=== PATIENT | female | born 1975 | race Caucasian/White ===

== ENCOUNTER 2020-05-25 00:30 | Emergency (ER) | payer OTHER, SELFPAY ==
--- NOTE | ~2020-05-25 | XR_ITS ---
XR chest 2V DATE: 05/25/2020 01:11 INDICATION: Shortness of breath, palpitations TECHNIQUE: PA and lateral views COMPARISON: 08/15/2007 AP chest FINDINGS: Normal heart size. No hilar or mediastinal enlargement. No pulmonary infiltrate or consolid ation, pleural effusion or pulmonary vascular congestion or pneumothorax. Surgical clips, right upper quadrant, consistent with cholecystectomy. IMPRESSION: No active cardiopulmonary disease Reviewed, dictated and finalized at location A.
[2020-05-25 00:33] VITALS: BP 171/101; PULSE 88; RESP 18; TEMP 36.8; O2SAT 100
--- NOTE | 2020-05-25 00:58 | ECG_ITS ---
Measurements Intervals [place] Rate: 84 P: 38 MO: 157 QRS: 21 QRSD: 97 T: 11 QT: 388 QTc: 461 Interpretive Statements SINUS RHYTHM LOW QRS VOLTAGE IN PRECORDIAL LEADS BORDERLINE T WAVE ABNORMALITY- INFERIOR LEADS BASELINE ARTIFACT- I, II, III, AVR, AVL, AVF BORDERLINE ECG Electronically Signed On 05-25-2020 7:03:09 CDT by Nain Fried D.O.
--- NOTE | 2020-05-25 01:10 | ED.GENADULT ---
HPI - General Adult General Chief complaint: Shortness of Breath/Dyspnea Stated complaint: Shortness of breath Time Seen by Provider: 05/25/20 00:40 History of Present Illness HPI narrative: Patient is a 44-year-old female who presents ER with feelings of weakness and like her heart was not beating right earlier in the evening. Patient diagnosed with diverticulitis about a week ago. Has been taking the antibiotics. Reports she thought she was feeling better earlier today but when she laid down to go to sleep she felt chilled and like her heart was not beating properly. Somewhat short of breath but no runny nose/sore throat/cough. No loss of taste or smell. No history of anxiety. Still has left lower quadrant abdominal pain. Related Data Allergies Allergy/AdvReac Type Severity Reaction Status Date / Time No Known Allergies Allergy Unverified 05/16/20 11:10 Review of Systems Review of Systems: All systems reviewed & are unremarkable except as noted in HPI and below Constitutional: Constitutional: Denies chills, Reports fatigue and Denies fever(s) ENT: Denies nasal congestion and Denies sore throat Respiratory: Respiratory: Denies cough, Reports dyspnea and Denies wheezing Gastrointestinal: Gastrointestinal: Reports abdominal pain, Denies nausea and Denies vomiting Genitourinary: Genitourinary: Denies nocturia and Denies dysuria PMFSH Past Medical History Medical History (Updated 05/25/20 @ 01:39 by Augustine Can MD) Diverticulitis DVT (deep venous thrombosis) Surgical History Surgical History (Updated 05/25/20 @ 01:39 by Augustine Can MD) H/O section History of cholecystectomy Family History Family History (Updated 03/12/16 @ 11:29 by DOCTOR UNKNOWN) Father Hypertension Family history of elevated blood lipids Mother Family history of elevated blood lipids Family history of malignant neoplasm of kidney Social History Social History (Updated 05/16/20 @ 11:10 by Alanis Woody) Smoking status: Never smoker Second hand tobacco smoke exposure: No Alcohol intake: never Substance use: never Substance use type: does not use Gender identity (if verbalized by the patient): Female Exam Narrative: Exam Narrative: GENERAL: Well-appearing, well-nourished, and in no acute distress. HEAD: Normocephalic, atraumatic. EYES: PERRLA and EOMI. ENT: Nares clear, no rhinorrhea or epistaxis. Mucous membranes moist. NECK: Supple. CHEST: Clear to auscultation. No respiratory distress. HEART: Regular rate and rhythm. No murmur heard. Normal peripheral pulses. ABDOMEN: Soft, nontender, nondistended, normal active bowel sounds. EXTREMITIES: Normal range of motion. No edema. SKIN: Warm, dry, no rash. NEURO: No focal deficits. Alert and oriented x3. PSYCH: Normal mood and affect. Course Vital Signs Vital signs: Vital Signs Temperature 98.3 F 05/25/20 00:33 Pulse Rate 88 05/25/20 00:33 Respiratory Rate 18 05/25/20 00:33 Blood Pressure 171/101 H 05/25/20 00:33 Pulse Oximetry 100 05/25/20 00:33 Temperature 98.3 F 05/25/20 00:33 Pulse Rate 88 05/25/20 00:33 Respiratory Rate 18 05/25/20 00:33 Blood Pressure 171/101 H 05/25/20 00:33 Pulse Oximetry 100 05/25/20 00:33 Medical Decision Making Vital Signs Vital Signs: Vital Signs Temperature 98.3 F 05/25/20 00:33 Pulse Rate 88 05/25/20 00:33 Respiratory Rate 18 05/25/20 00:33 Blood Pressure 171/101 H 05/25/20 00:33 Pulse Oximetry 100 05/25/20 00:33 Temperature 98.3 F 05/25/20 00:33 Pulse Rate 88 05/25/20 00:33 Respiratory Rate 18 05/25/20 00:33 Blood Pressure 171/101 H 05/25/20 00: Pulse Oximetry 100 05/25/20 00:33 Discharge Plan Discharge Prescriptions: No Action ciprofloxacin HCl [Cipro] 500 mg tablet 500 mg PO Q12H Qty: 20 RF: 0 metronidazole [Flagyl] 500 mg tablet 500 mg PO Q12H Qty: 20 RF: 0
[2020-05-25] MEDS: SODIUM CHLORIDE 0.9% IV 1,000 ML 999 ML IV CONT (01:16)
[2020-05-25 01:25] LABS: Basophils Absolute Auto 0.1 K/mm3 (0.0-0.1); Basophils Percent Auto 0.5 % (0.2-1.2); Eosinophils Absolute Auto 0.1 K/mm3 (0-0.3); Eosinophils Percent Auto 1.1 % (0-4.4); Hematocrit 40.2 % (37.0-47.0); Hemoglobin 13.2 g/dL (12.0-15.0); Immature Granulocyte Absolute 0.03 K/mm3 (0.00-0.031); Immature Granulocyte Percent A 0.3 % (0-0.5); Lymphocytes Absolute Auto 2.93 K/mm3 (0.9-3.2); Lymphocytes Percent Auto 26.4 % (18.3-44.2); Mean Corpuscular HGB Conc 32.8 g/dl (32-36); Mean Corpuscular Volume 88.4 fl (80-100); Mean Platelet Volume 8.3 fl (7.4-10.4); Monocytes Absolute Auto 0.7 K/mm3 (0.1-0.6); Monocytes Percent Auto 6.7 % (2.6-8.5); Neutrophils Absolute Auto 7.2 K/mm3 (1.3-6.7); Platelet Count Result 350 k/mm3 (150-375); Red Blood Count 4.55 M/mm3 (4.2-5.4); Red Cell Distribution Width 13.2 % (11.5-14.5); White Blood Count 11.1 K/mm3 (4.5-10.0)
[2020-05-25 01:37] LABS: Anion Gap 6 mmol/L (8-16); Blood Urea Nitrogen 10 mg/dL (7-17); Calcium 9.5 mg/dL (8.4-10.2); Carbon Dioxide 31 mmol/L (22-30); Chloride 102 mmol/L (98-107); Estimated CRCL calculation 88 ml/min; Estimated Glomerular Filt Rate > 60; Glucose 106 mg/dL (65-105); Potassium 3.5 mmol/L (3.4-5.0); Sodium 139 mmol/L (137-145)
--- NOTE | 2020-05-25 03:16 | ED.SOB ---
HPI - SOB/Dyspnea General Chief Complaint: Shortness of Breath/Dyspnea Stated Complaint: Shortness of breath Time Seen by Provider: 05/25/20 00:40 History of Present Illness HPI Narrative: Patient is a 44-year-old female who presents ER with complaint of shortness of breath. Patient was diagnosed in the last week with diverticulitis. She has known history of this. She has been taking Cipro and Flagyl. Reports she has been having some persistent nausea but no vomiting. No loose stools. She has persistent left lower quadrant abdominal pain that is nonradiating. Tonight she felt like she had some racing of her heart and shortness of breath associated with it. She laid down to go to sleep and felt a heaviness wash over her. Related Data Allergies Allergy/AdvReac Type Severity Reaction Status Date / Time No Known Allergies Allergy Unverified 05/16/20 11:10 Review of Systems Review of Systems: All systems reviewed & are unremarkable except as noted in HPI and below Constitutional: Constitutional: Denies chills, Reports fatigue and Denies fever(s) ENT: Denies nasal congestion and Denies sore throat Cardiovascular: Cardiovascular: Denies chest pain and Reports rapid heart rate Respiratory: Respiratory: Denies cough, Reports dyspnea and Denies wheezing Gastrointestinal: Gastrointestinal: Reports abdominal pain, Reports nausea and Denies vomiting PMFSH Past Medical History Medical History (Updated 05/25/20 @ 03:29 by Augustine Can MD) Diverticulitis DVT (deep venous thrombosis) Surgical History Surgical History (Updated 05/25/20 @ 01:39 by Augustine Can MD) H/O section History of cholecystectomy Family History Family History (Updated 03/12/16 @ 11:29 by DOCTOR UNKNOWN) Father Hypertension Family history of elevated blood lipids Mother Family history of elevated blood lipids Family history of malignant neoplasm of kidney Social History Social History (Updated 05/16/20 @ 11:10 by Alanis Woody) Smoking status: Never smoker Second hand tobacco smoke exposure: No Alcohol intake: never Substance use: never Substance use type: does not use Gender identity (if verbalized by the patient): Female Exam Narrative: Exam Narrative: GENERAL: Well-appearing, well-nourished, and in no acute distress. HEAD: Normocephalic, atraumatic. ENT: Mucous membranes moist. CHEST: Clear to auscultation. No respiratory distress. HEART: Regular rate and rhythm. Normal peripheral pulses. ABDOMEN: Soft, mild TTP LLQ, nondistended. EXTREMITIES: Normal range of motion. No edema. SKIN: Warm, dry, no rash. NEURO: Alert and oriented x3. Course Course Emergency Course: Patient informed of results. Hydrated. Unremarkable evaluation. Discharge home recommend follow-up with PCP. Vital Signs Vital signs: Vital Signs Temperature 98.3 F 05/25/20 00:33 Pulse Rate 88 05/25/20 00:33 Respiratory Rate 18 05/25/20 00:33 Blood Pressure 171/101 H 05/25/20 00:33 Pulse Oximetry 100 05/25/20 00:33 Temperature 98.3 F 05/25/20 00:33 Pulse Rate 88 05/25/20 00:33 Respiratory Rate 18 05/25/20 00:33 Blood Pressure 171/101 H 05/25/20 00:33 Pulse Oximetry 100 05/25/20 00:33 MDM - SOB/Dyspnea Lab Data Result diagrams: 05/25/20 01:17 05/25/20 01:17 Labs: Lab Results 05/25/20 05/25/20 05/25/20 Range/Units 01:17 01:17 01:17 WBC 11.1 H (4.5-10.0) K/mm3 RBC 4.55 (4.2-5.4) M/mm3 Hgb 13.2 (12.0-15.0) g/dL Hct 40.2 (37.0-47.0) % MCV 88.4 (80-100) fl MCH 29.0 (26-34) pg MCHC 32.8 (32-36) g/dl RDW 13.2 (11.5-14.5) % Plt Count 350 (150-375) k/mm3 MPV 8.3 (7.4-10.4) fl Immature Gran % (Auto) 0.3 (0-0.5) % Neut % (Auto) 65.0 (45.5-73.1) % Lymph % (Auto) 26.4 (18.3-44.2) % [place] % (Auto) 6.7 (2.6-8.5) % Eos % (Auto) 1.1 (0-4.4) % Baso % (Auto) 0.5 (0.2-1.2) %
[2020-05-25 03:46] VITALS: BP 142/91; PULSE 80; RESP 18; O2SAT 96
== END 2020-05-25 03:48 | disposition home or self-care (01) ==
PROVIDERS: Emergency Provider Emergency Medicine; PCP Family Medicine
DX: K57.92 Diverticulitis of intestine, part unspecified, without perforation or abscess without bleeding (principal); R00.2 Palpitations; R06.00 Dyspnea, unspecified; Z86.718 Personal history of other venous thrombosis and embolism; R94.31 Abnormal electrocardiogram [ECG] [EKG]
CPT/HCPCS: 36415; 71046; 80048; 83605; 85025; 93005; 96360; 99283; J7030

== ENCOUNTER 2020-08-04 11:18 | Outpatient (CLI) | payer OTHER, SELFPAY ==
[2020-08-04 12:09] LABS: Basophils Percent Auto 0.5 % (0.2-1.2); Eosinophils Absolute Auto 0.1 K/mm3 (0-0.3); Eosinophils Percent Auto 1.6 % (0-4.4); Hematocrit 42.3 % (37.0-47.0); Hemoglobin 13.7 g/dL (12.0-15.0); Immature Granulocyte Absolute 0.02 K/mm3 (0.00-0.031); Immature Granulocyte Percent A 0.3 % (0-0.5); Lymphocytes Absolute Auto 2.07 K/mm3 (0.9-3.2); Lymphocytes Percent Auto 33.3 % (18.3-44.2); Mean Corpuscular HGB Conc 32.4 g/dl (32-36); Mean Corpuscular Hemoglobin 28.8 pg (26-34); Mean Corpuscular Volume 88.9 fl (80-100); Mean Platelet Volume 8.4 fl (7.4-10.4); Monocytes Absolute Auto 0.4 K/mm3 (0.1-0.6); Monocytes Percent Auto 6.4 % (2.6-8.5); Neutrophils Absolute Auto 3.6 K/mm3 (1.3-6.7); Neutrophils Percent Auto 57.9 % (45.5-73.1); Platelet Count Result 322 k/mm3 (150-375); Red Blood Count 4.76 M/mm3 (4.2-5.4); Red Cell Distribution Width 13.5 % (11.5-14.5); White Blood Count 6.2 K/mm3 (4.5-10.0)
== END 2020-08-04 11:19 | disposition home or self-care (01) ==
PROVIDERS: PCP Family Medicine; Visit Provider Obstetrics & Gynecology
DX: Z01.812 Encounter for preprocedural laboratory examination (principal); R10.2 Pelvic and perineal pain
CPT/HCPCS: 36415; 85025; 86850; 86900; 86901

== ENCOUNTER 2020-08-07 01:08 | Outpatient (CLI) | payer OTHER, SELFPAY ==
[2020-08-07 19:22] LABS: SARS-CoV-2 RNA PCR Negative
== END 2020-08-07 01:09 | disposition home or self-care (01) ==
LOC: ANHCOVIDDT 01:09
PROVIDERS: PCP Family Medicine; Visit Provider Obstetrics & Gynecology
DX: Z01.812 Encounter for preprocedural laboratory examination (principal); Z20.822 Contact with and (suspected) exposure to COVID-19
CPT/HCPCS: C9803; U0003; U0005

== ENCOUNTER 2020-08-10 01:53 | Day surgery (SDC) | payer OTHER, SELFPAY ==
[2020-08-03 14:10] VITALS: BMI 34.0
--- NOTE | 2020-08-08 08:32 | PM.IMHP ---
H&P: HPI History of Present Illness Date/Time: 08/08/20 08:32 Chief Complaint: pain/bleeding Narrative: Aneta Chong is a 45 year old female is admitted for robotic total Robotic vaginal hysterectomy and bilateral salpingectomy. Risks and benefits reviewed including but not exclusive of.t exclusive of , aspiration pneumonia, bleeding, transfusion wall reviewed. She was given standing. She had all questions answered. She received the ACOG handout entitled hysterectomy. She asked to proceed Review of Systems Review of Systems: All systems reviewed & are unremarkable except as noted in HPI and below PMFSH Past Medical History Medical History Diverticulitis DVT (deep venous thrombosis) Surgical History Surgical History H/O section History of cholecystectomy Family History Family History Father Hypertension Family history of elevated blood lipids Mother Family history of elevated blood lipids Family history of malignant neoplasm of kidney Social History Social History Smoking status: Never smoker Second hand tobacco smoke exposure: No Alcohol intake: never Substance use: never Substance use type: does not use Gender identity (if verbalized by the patient): Female Spiritual care concerns: No Meds Home Medications and Allergies Home Medications Medication Instructions Recorded Confirmed Type Protandim 1 tab-cap PO DAILY 08/03/20 08/03/20 History Allergies Allergy/AdvReac Type Severity Reaction Status Date / Time No Known Allergies Allergy Unverified 08/03/20 13:50 Exam Const: General: no acute distress Eyes: General: appearance normal, both eyes and all related structures Neck: Neck: supple and no JVD Thyroid: thyroid normal Resp: Effort & Inspection: normal respiratory effort Auscultation: clear to auscultation bilaterally Cardio: Rate: regular rate Rhythm: regular rhythm GI: Inspection: non-distended GI Palp: Yes Soft to palpation, No Tenderness to palpation present (GI) and No Guarding due to palpation present (GI) Auscultation: normal bowel sounds : General: Yes bladder normal to inspection External Female Exam: normal external appearance Speculum Exam - Vagina: normal appearance of the vagina Speculum Exam - Cervix: normal appearance of the cervix Bimanual exam- vagina & uterus: enlarged Bimanual Exam- Adnexa, other: no masses Skin: General skin exam: no rashes or lesions noted Extrem: General: normal to inspection and no edema Psych: Mental Status: mental status grossly normal Affect: normal affect Assessment and Plan Additional Plan impression: Enlarged uterus bleeding refractory to medical therapy Plan: Robotic total vaginal hysterectomy and bilateral salpingectomy
[2020-08-10] VITALS (17 sets, daily range): BP systolic 119–143; BP diastolic 64–90; PULSE 69–99; RESP 12–18; TEMP 36–36.8; O2SAT 92–100; BMI 34.0
--- NOTE | 2020-08-10 06:39 | WPDHPUPDATE1 ---
History and Physical Update Update Date/Time: 08/10/20 06:39 History and Physical has been reviewed, including an updated exam of the patient. There are NO changes in the patient's condition. Risks, benefits, and alternatives have been discussed and questions answered. Patient agrees to proceed with procedure.
--- NOTE | 2020-08-10 08:16 | WPDANESEPPF ---
Anes - Initial Pre Proc Eval Procedure: Operation Date: 08/10/20 09:30 Proposed Procedures p Robotic Assissted Total Vaginal Hysterectomy With Bilateral Salpingectomy, Possible Unilateral Oophorectomy - Toi Odonnell MD Date/Time: 08/10/20 08:16 Surgeon: Toi Odonnell MD Pre Op Diagnosis: irregular bleeding, pelvic pain, fibroids Patient Data Age: 45 Gender: F Height: 5 ft 6 in Weight: 95.45 kg Allergies Allergy/AdvReac Type Severity Reaction Status Date / Time No Known Allergies Allergy Verified 08/10/20 07:40 Home Medications Medication Instructions Recorded Confirmed Type Protandim 1 tab-cap PO DAILY 08/03/20 08/10/20 History hydrocodone-acetaminophen [[place]] 1 tablet PO Q4H PRN #30 tablet 08/10/20 Rx Patient hx anesthesia problems: none Family hx anesthesia problems: none PMFSH Past Medical History Medical History Diverticulitis DVT (deep venous thrombosis) Surgical History Surgical History H/O section History of cholecystectomy Family History Family History Father Hypertension Family history of elevated blood lipids Mother Family history of elevated blood lipids Family history of malignant neoplasm of kidney Social History Social History Smoking status: Never smoker Second hand tobacco smoke exposure: No Alcohol intake: never Substance use: never Substance use type: does not use Living arrangements: with family Gender identity (if verbalized by the patient): Female Spiritual care concerns: No Anes - Eval Final PreProcedure Day of Procedure 08/10/20 08:16 Patient weight: obese Heart: regular rate and rhythm Lungs: clear to auscultation Airway: Mallampati scale class 1 Neurological: alert and oriented Last oral intake: >/= 8 hours ASA classification: II Emergent: no Anesthetic plan: proceed Anesthesia type and monitoring: general ETT and standard monitoring Informed Consent: The patient's anesthetic plan and its attendant risks and benefits were discussed with the patient/family/POA. Questions were solicited and answers provided to the satisfaction of the patient/family/POA.
--- NOTE | 2020-08-10 08:36 | SUR.PREOP ---
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
[2020-08-10] MEDS: ACETAMINOPHEN 500 MG TABLET 1000 MG PO (08:41)
[2020-08-10] MEDS: KETOROLAC 15 MG/ML VIAL (*BKC) IV PUSH (08:47)
[2020-08-10] MEDS: LACTATED RINGERS 1,000 ML 30 ML IV CONT ×2 (08:48→10:37)
--- NOTE | 2020-08-10 09:03 | SUR.PREOP ---
CALLED DR GONZALEZ REGARDING CONSENT SAYING POSSIBLE UNILATERAL OOPHERECTOMY. STATES HE ISNT PLANNING ON THAT PART OF THE PROCEDURE. [employer]CH[employer] NOTIFIED.
[2020-08-10] MEDS: ceFAZolin 2 GM/D5W 50 ML 2 GM/50 ML BAG IVPB (09:13)
--- NOTE | 2020-08-10 10:11 | SUR.OPER ---
uterus 151gm
--- NOTE | 2020-08-10 10:26 | PM.PROC ---
Procedure Note - Detailed Date of procedure: 08/10/20 Pre-op diagnosis: irregular bleeding, pelvic pain, fibroids Surgeon: Toi Odonnell MD Postop diagnosis: Irregular bleeding/pelvic pain/fibroids Procedure: Robotic total vaginal hysterectomy and bilateral salpingectomies EBL: 20cc Anesthesia: General endotracheal Complications: None Findings: Enlarged fibroid uterus. Benign-appearing ovaries bilaterally. Description of procedure: The patient was prepped draped in the normal sterile fashion and placed in the dorsal lithotomy position. Under excellent general tracheal anesthesia weighted speculum was placed in the posterior fornix of vagina. The anterior lip of the cervix was grasped with a single-tooth tenaculum and the uterus sounded to 11cm. Serial dilatation with fragmented dilators performed followed by passage of the 10. NETTIE and the 3. Cold cup. The 16 [place] catheter was placed in the bladder and drained clear urine. The weighted speculum was removed. The gloves were changed. A supraumbilical incision was made and the Veress needle passed in the abdomen. The abdomen filled with CO2 gas [id number]. The 8mm trocar advanced in the abdomen. The downside visualized and no injury seen. The patient was placed in Trendelenburg and right and left lateral quadrant incisions made. 8mm trocars were advanced under direct visualization assuring no injury. The right upper quadrant incision made in the 10mm trocar advanced under direct visualization assuring no injury. The robot was docked. Attention was then turned to the console. The left round ligament was grasped, burned, cut. Anteriorly a bladder flap was formed by sharply dissecting the bladder away from the uterus layer by layer. This was moderately high on the uterus and care was taken to avoid injury. This was taken to the opposite round ligament which was clamped, burned, cut. Next the left ovary was sharply dissected using monopolar cautery away from the ovary and tube complex. The right fallopian tube was dissected away sharply with monopolar cautery to the and it remained attached to the uterine tissue. Next the left utero-ovarian ligament was skeletonized to conserve the left ovary. This was clamped, burned, cut. This was brought to the level of the previously cut round ligament. Conserving the right ovary the utero-ovarian ligament on the right was clamped, burned, cut and brought to level of the previously cut round ligament. The cardinal and broad ligaments then were serially skeletonized on the left sliding down the edge of the uterus and cervix clamping burning and cutting until the uterine vessels could be seen on the left large tortuous vessels were noted in these were individually clamped, burned, cut. In like fashion the right cardinal and broad ligaments were serially skeletonized by sharply dissecting the these away from the lateral edge of the cervix and uterus by clamping burning and cutting. Once the uterine vessels were seen on the right these were individually clamped, burned, cut. Excellent blanching of the uterus was seen and blood supplies were all controlled. A colpotomy incision was then made and the cervix and uterus and tubes removed through the vagina. The vagina was then closed with continuous running 0V lock from lateral edge to lateral edge and back to the midline. Irrigation undertaken until clear and pedicles appeared dry the vaginal cuff was parenchymal with [place] term. The robot was undocked. The gas removed from the abdomen. The trocars removed. The incisions closed with 4 O Monocryl and glue after gas had been removed from the abdomen. The patient was awakened and went to recovery in satisfactory condition. All sponge, needle, instrument counts were correct. There were no immediate complications
[2020-08-10] MEDS: fentaNYL CITRATE INJ (*CRX) 100 MCG/2 ML VIAL 25 MCG IV PUSH ×4 (10:56→11:32)
--- NOTE | 2020-08-10 12:05 | PC.NURSE ---
Pt admitted to room 280 per bed. Alert and oriented x3. Oriented to room and care routines.
[2020-08-10] MEDS: DEXTROSE 5%/LACTATED RINGERS 1,000 ML 125 ML IV CONT (12:33)
[2020-08-10] MEDS: HYDROcodone/acetaminophen (*CRX) 10-325 MG TABLET 1 TAB PO ×3 (13:09→20:01)
[2020-08-10] MEDS: KETOROLAC 30 MG/ML VIAL (*BKC) IV PUSH (14:08)
[2020-08-10] MEDS: DOCUSATE SODIUM 100 MG CAPSULE PO (15:44)
[2020-08-10] MEDS: ONDANSETRON INJ 4 MG/2 ML VIAL IV PUSH (19:31)
[2020-08-10] MEDS: IBUPROFEN 600 MG TABLET PO (20:02)
[2020-08-11 00:10] VITALS: BP 98/50; PULSE 94; RESP 16; TEMP 37.2; O2SAT 100
[2020-08-11] MEDS: HYDROcodone/acetaminophen (*CRX) 5-325 MG TABLET 1 TAB PO ×2 (04:13→10:46)
[2020-08-11] MEDS: IBUPROFEN 600 MG TABLET PO ×2 (04:14→10:46)
[2020-08-11 04:15] VITALS: BP 118/74; PULSE 84; RESP 18; TEMP 36.6; O2SAT 100
[2020-08-11 05:33] LABS: Basophils Percent Auto 0.2 % (0.2-1.2); Hematocrit 37.8 % (37.0-47.0); Hemoglobin 12.4 g/dL (12.0-15.0); Immature Granulocyte Absolute 0.05 K/mm3 (0.00-0.031); Immature Granulocyte Percent A 0.4 % (0-0.5); Lymphocytes Absolute Auto 1.31 K/mm3 (0.9-3.2); Lymphocytes Percent Auto 10.8 % (18.3-44.2); Mean Corpuscular HGB Conc 32.8 g/dl (32-36); Mean Corpuscular Hemoglobin 28.8 pg (26-34); Mean Corpuscular Volume 87.9 fl (80-100); Mean Platelet Volume 8.6 fl (7.4-10.4); Monocytes Absolute Auto 0.7 K/mm3 (0.1-0.6); Monocytes Percent Auto 5.8 % (2.6-8.5); Neutrophils Absolute Auto 10.1 K/mm3 (1.3-6.7); Neutrophils Percent Auto 82.8 % (45.5-73.1); Platelet Count Result 288 k/mm3 (150-375); Red Cell Distribution Width 13.4 % (11.5-14.5); White Blood Count 12.1 K/mm3 (4.5-10.0)
--- NOTE | 2020-08-11 08:00 | P.DS_ITS ---
DS: Admitting Diagnosis Admitting Diagnosis Admitting Diagnosis: enlarged uterus abnormal uterine bleeding DS: Summary Hospital Course Hospital Course: Aneta Chong was admitted after robotic assisted total la paroscopic hysterectomy and bilateral salpingectomy for abnormal uterine bleeding and enlarged uterus. The above procedure was performed with no complications. She is doing well post op. She states her pain is well controlled with PO medications. She reports minimal bleeding. She is ambulating up to the chair. Her willard catheter was removed. She is tolerating PO without N/V. She reports passing flatus. Status at Discharge Overall status at discharge: patient is progressing back to baseline Time Spent with Patient Time attestation: Total time spent providing and/or coordinating discharge services: Time spent: Less than 30 minutes Exam Const: General: comfortable and no acute distress Limitations: no limitations Resp: Effort & Inspection: normal respiratory effort Auscultation: clear to auscultation bilaterally Cardio: Rate: regular rate Rhythm: regular rhythm GI: Inspection: non-distended GI Palp: Yes Soft to palpation, Yes Tenderness to palpation present (GI) (milder tenderness to deep palpation) and No Guarding due to palpation present (GI) Auscultation: normal bowel sounds Other: incisions C/D/I covered with dermabond Urinary Catheter: Urinary Catheter: urine clear Skin: General skin exam: normal color Extrem: General: normal to inspection Psych: Mental Status: mental status grossly normal Affect: normal affect DS: Data Data Completed and Pending Pending studies at discharge: Pending at discharge 08/10/20 10:10 Surgical [PTH] Routine Labs on day of discharge: Labs from last 24 hours 08/11/20 04:29 WBC 12.1 H RBC 4.30 Hgb 12.4 Hct 37.8 MCV 87.9 MCH 28.8 MCHC 32.8 RDW 13.4 Plt Count 288 MPV 8.6 Immature Gran % (Auto) 0.4 Neut % (Auto) 82.8 H Lymph % (Auto) 10.8 L [place] % (Auto) 5.8 Eos % (Auto) 0.0 Baso % (Auto) 0.2 Lymph # (Auto) 1.31 [place] # (Auto) 0.7 H Eos # (Auto) 0.0 Baso # (Auto) 0.0 Abs Immat Gran (auto) 0.05 H Absolute Neuts (auto) 10.1 H Absolute Nucleated RBC 0.0 Nucleated RBC % 0.0 Discharge Plan Discharge Patient Disposition: Home, Self-Care Stand Alone Forms: General Discharge Instructions Follow-up/Referrals: Toi Odonnell MD [Physician] - Discharge Medications: New hydrocodone-acetaminophen [[place]] 5-325 mg tablet 1 tablet PO Q4H PRN (Reason: pain) Qty: 30 RF: 0 enoxaparin [Lovenox] 40 mg/0.4 mL syringe 40 mg subcut DAILY Qty: 7 RF: 0 No Action Protandim 1 tab-cap PO DAILY RF: 0
[2020-08-11] MEDS: ENOXAPARIN 40 MG/0.4 ML SYRINGE SUB-Q (08:15)
[2020-08-11] MEDS: DOCUSATE SODIUM 100 MG CAPSULE PO (08:15)
[2020-08-11 08:30] VITALS: BP 114/74; PULSE 81; RESP 16; TEMP 37
--- NOTE | 2020-08-11 08:38 | WPDANESPN ---
Anes - Prog Note Post-Op Date/Time: 08/11/20 08:38 Cardiovascular status: normal Respiratory status: normal Airway patency: baseline Mental status: baseline Post-Op hydration status: normal Vital Signs: Last Vital Signs Temp 36.6 C 08/11/20 04:15 Pulse 84 08/11/20 04:15 Resp 18 08/11/20 04:15 BP 118/74 08/11/20 04:15 Pulse Ox 100 08/11/20 04:15 Pain Score (VAS): 4 I/O: Intake & Output 08/10/20 08/11/20 08/11/20 23:59 07:59 15:59 Intake Total 600 1200 Output Total 450 2000 Balance 150 -800 Laboratory Tests 08/11/20 04:29 08/11/20 04:29 WBC 12.1 H RBC 4.30 Hgb 12.4 Hct 37.8 MCV 87.9 MCH 28.8 MCHC 32.8 RDW 13.4 Plt Count 288 MPV 8.6 Immature Gran % (Auto) 0.4 Neut % (Auto) 82.8 H Lymph % (Auto) 10.8 L [place] % (Auto) 5.8 Eos % (Auto) 0.0 Baso % (Auto) 0.2 Lymph # (Auto) 1.31 [place] # (Auto) 0.7 H Eos # (Auto) 0.0 Baso # (Auto) 0.0 Abs Immat Gran (auto) 0.05 H Absolute Neuts (auto) 10.1 H Absolute Nucleated RBC 0.0 Nucleated RBC % 0.0 Post-procedural complaints: none Patient Feedback: Patient satisfied with anesthetic care.
--- NOTE | 2020-08-11 10:48 | PC.NURSE ---
Took flu shot in to administer to patient, she states she does not want the shot. Order cancelled, flu shot not administered.
== END 2020-08-11 12:15 | disposition home or self-care (01) ==
LOC: ANHSURGERY 07:19 → ANHOB2 12:06
PROVIDERS: PCP Family Medicine; Visit Provider Obstetrics & Gynecology
PROC: (CPT 58552; principal; 2020-08-10 09:30)
DX: N93.9 Abnormal uterine and vaginal bleeding, unspecified (principal); N80.0 Endometriosis of uterus; Z86.718 Personal history of other venous thrombosis and embolism; K57.92 Diverticulitis of intestine, part unspecified, without perforation or abscess without bleeding
CPT/HCPCS: 58552; S2900; 36415; 85025; 88307; 99199; A9270; J0690; J1100; J1170; J1650; J1885; J2250; J2405; J2704; J2710; J3010; J7030; J7120; J7121

== ENCOUNTER 2021-01-10 19:44 | Emergency (ER) | payer OTHER, SELFPAY ==
[2021-01-10 19:49] VITALS: BP 145/97; PULSE 75; RESP 22; TEMP 37; O2SAT 99
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
[2021-01-10] MEDS: KETOROLAC (*BKC) 60 MG/2 ML VIAL 30 MG IM (20:19)
[2021-01-10 20:25] VITALS: BP 145/89; PULSE 74; RESP 20; O2SAT 99
[2021-01-10] MEDS: diazePAM (*CRX) 5 MG TABLET 2.5 MG PO (20:25)
== END 2021-01-10 21:04 | disposition home or self-care (01) ==
PROVIDERS: Emergency Provider Emergency Medicine; PCP Family Medicine
DX: M79.604 Pain in right leg (principal); M79.601 Pain in right arm; V49.40XA Driver injured in collision with unspecified motor vehicles in traffic accident, initial encounter
CPT/HCPCS: 96372; 99283; A9270; J1885

== ENCOUNTER → 2023-06-10 08:47 | Outpatient (CLI) | payer OTHER, SELFPAY ==
--- NOTE | ~2023-06-10 | MMUS_ITS ---
EXAMINATION: MM diagnostic lay BI w birgit, US breast LT limited HISTORY: Left breast pain TECHNIQUE: Craniocaudal, mediolateral, and mediolateral oblique 3-D tomosynthesis images of the breas ts were performed and synthetic 2-D images were generated. CAD analysis was submitted and interpreted . High resolution limited left breast ultrasound was performed. COMPARISON: 04/03/2011 BREAST PARENCHYMAL COMPOSITION: There are scattered areas of fibroglandular density. FINDINGS: MAMMOGRAPHIC FINDINGS: No suspicious mass, calcification, or architectural distortion are identified in either breast to sug gest malignancy. There has been no suspicious interval change. No mammographic correlate is identifie d for the patient's reported left breast pain. ULTRASOUND: There is no evidence of focal abnormal solid or cystic mass in the vicinity of the patient's reported left breast pain. IMPRESSION: 1. No specific mammographic or sonographic correlate is identified for the patient's reported left br east pain. Further evaluation at this time should be based on clinical assessment. Continued follow-u p physical examination is recommended. 2. Recommend routine screening mammography in one year. BI-RADS Category 1: Negative Reviewed, dictated and finalized at location A. DESK AGENT IMPRESSION: 1. No specific mammographic or sonographic correlate is identified for the bethel ent's reported left breast pain. Further evaluation at this time should be base d on clinical assessment. Continued follow-up physical examination is recommend ed. 2. Recommend routine screening mammography in one year. BI-RADS Category 1: Negative
== END ==
PROVIDERS: PCP Obstetrics & Gynecology; Visit Provider Obstetrics & Gynecology
DX: R92.8 Other abnormal and inconclusive findings on diagnostic imaging of breast (principal)
CPT/HCPCS: 76642; 77062; 77066; G0279